=== PATIENT | female | born 1960 | race Caucasian/White ===

== ENCOUNTER 2019-10-10 18:13 | Emergency (ER) | payer OTHER, SELFPAY ==
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
[2019-10-10 20:55] VITALS: O2SAT 99
[2019-10-10 20:57] VITALS: BP 127/74
== END 2019-10-10 20:51 | disposition home or self-care (01) ==
LOC: ER 18:13
DX: S13.4XXA Sprain of ligaments of cervical spine, initial encounter (principal); V43.62XA Car passenger injured in collision with other type car in traffic accident, initial encounter; Y93.89 Activity, other specified; Y92.410 Unspecified street and highway as the place of occurrence of the external cause
CPT/HCPCS: 72125; 99284